=== PATIENT | female | born 1960 | race Caucasian/White ===

== ENCOUNTER 2019-05-28 15:50 | Emergency (ER) | payer BC ==
[~2019-05-28] VITALS: Ht 170.2 cm; Wt 78.0 kg
[2019-05-28 16:06] VITALS: BP_SYST 185
[2019-05-28 16:38] LABS: BASOPHILS # (AUTO) 0.1 K/uL (0.0-0.2); BASOPHILS % (AUTO) 1.2 % (0.0-2.0); EOSINOPHILS # (AUTO) 0.2 K/uL (0.0-0.4); EOSINOPHILS % (AUTO) 2.1 % (0.0-4.0); HEMATOCRIT 43.1 % (36-48); HEMOGLOBIN 14.6 g/dL (12.0-16.0); LYMPHOCYTES # (AUTO) 3.6 K/uL (1.0-5.5); LYMPHOCYTES % (AUTO) 32.9 % (20.5-51.5); MEAN CORPUSCULAR HEMOGLOBIN 31 pg (27-31); MEAN CORPUSCULAR HGB CONC 34 % (32-36); MEAN CORPUSCULAR VOLUME 91 fL (79.0-98.0); MONOCYTES # (AUTO) 0.6 K/uL (0.0-1.0); MONOCYTES % (AUTO) 5.5 % (1.7-9.3); NEUTROPHILS # (AUTO) 6.5 K/uL (1.8-7.7); NEUTROPHILS % (AUTO) 58.3 % (40.0-70.0); PLATELET COUNT (AUTO) 281 K/uL (130-430); RED BLOOD CELL COUNT(AUTO) 4.76 MIL/uL (4.2-6.2); WHITE BLOOD COUNT (AUTO) 11.1 K/uL (4.8-10.8)
[2019-05-28 16:42] LABS: ANION GAP 10 (5-15); CALCIUM 10.1 mg/dL (8.4-11.0); CHLORIDE 100 mmol/L (98-107); CREATININE 0.94 mg/dL (0.55-1.30); GLUCOSE 132 mg/dL (70-99); POTASSIUM 4.8 mmol/L (3.5-5.1); SODIUM SERUM 137 mmol/L (136-145); UREA NITROGEN, BLOOD 22 mg/dL (8-21)
[2019-05-28 16:43] LABS: GFR AFRICAN AMERICAN 79 mL/min (>90)
[2019-05-28 16:45] LABS: PROTHROMBIN TIME 10.1 SECS (9.5-12.5)
[2019-05-28 18:56] VITALS: BP_SYST 148
== END 2019-05-28 18:56 | disposition home or self-care (01) ==
LOC: SED 15:50
DX: R07.89 Other chest pain (principal); F41.9 Anxiety disorder, unspecified; I10 Essential (primary) hypertension
CPT/HCPCS: 36415; 71045; 80048; 84484; 85025; 85610-TC; 85730-TC; 99284

== ENCOUNTER 2021-11-04 17:55 | Emergency (ER) | payer BC ==
[~2021-11-04] VITALS: Ht 170.2 cm; Wt 77.1 kg
[2021-11-04 17:59] VITALS: BP_SYST 183
--- NOTE | 2021-11-04 18:10 | NUR ---
Pt in bed #5. Pt c/o left hip pain that radiates to abdomen. Rates pain 8/10. States she had surgery of her cervix 2 weeks ago and her pain styarted yesterday. Pt is A&Ox4. Ambulatory with steady gait. Skin intact. No chest pain and no sob. Denies n/v. BP at 181/104, other vitals stable. Bed in lowest position. Has hx of HTN and DM. NKA.
--- NOTE | 2021-11-04 18:13 | NUR ---
Dr. Perez at bedside.
--- NOTE | 2021-11-04 18:23 | NUR ---
Pt to CT via wheelchair.
[2021-11-04] MEDS ORDERED: KETOROLAC TROMETHAMINE 60 MG/2 ML VIAL IM ONE (18:30)
--- NOTE | 2021-11-04 18:31 | NUR ---
Pt back from CT.
--- NOTE | 2021-11-04 18:41 | NUR ---
Pt refused medication Ketorolac 60mg because she did not want it IM and also refused any pain med PO because she does not want to get charged. Dr. Perez made aware.
--- NOTE | 2021-11-04 18:59 | NUR ---
photo optics technician at bedside drawing blood.
[2021-11-04] MEDS ORDERED: NAPR-1172 PO (19:06)
[2021-11-04 19:23] LABS: BASOPHILS # (AUTO) 0.2 K/uL (0.0-0.2); BASOPHILS % (AUTO) 1.3 % (0.0-2.0); EOSINOPHILS # (AUTO) 0.4 K/uL (0.0-0.4); EOSINOPHILS % (AUTO) 2.8 % (0.0-4.0); HEMATOCRIT 39.2 % (36-48); HEMOGLOBIN 13.1 g/dL (12.0-16.0); LYMPHOCYTES # (AUTO) 2.8 K/uL (1.0-5.5); LYMPHOCYTES % (AUTO) 22.3 % (20.5-51.5); MEAN CORPUSCULAR HEMOGLOBIN 30 pg (27-31); MEAN CORPUSCULAR HGB CONC 33 % (32-36); MEAN CORPUSCULAR VOLUME 89 fL (79.0-98.0); MONOCYTES # (AUTO) 0.6 K/uL (0.0-1.0); MONOCYTES % (AUTO) 4.7 % (1.7-9.3); NEUTROPHILS # (AUTO) 8.6 K/uL (1.8-7.7); NEUTROPHILS % (AUTO) 68.9 % (40.0-70.0); PLATELET COUNT (AUTO) 319 K/uL (130-430); RED BLOOD CELL COUNT(AUTO) 4.41 MIL/uL (4.2-6.2); RED CELL DISTRIBUTION WIDTH 13.5 % (9.0-15.0); WHITE BLOOD COUNT (AUTO) 12.5 K/uL (4.8-10.8)
[2021-11-04 19:33] LABS: CALCIUM 10.4 mg/dL (8.4-11.0); CREATININE 1.12 mg/dL (0.55-1.30); POTASSIUM 4.6 mmol/L (3.5-5.1)
[2021-11-04 19:38] LABS: TOTAL BILIRUBIN 0.4 mg/dL (0.0-1.0)
--- NOTE | 2021-11-04 19:50 | NUR ---
Patient given written and verbal discharge instructions; however refused to sign written discharge instructions. ER MD discussed with patient the results and treatment provided. Patient in stable condition prior to leaving ER.
== END 2021-11-04 19:50 | disposition home or self-care (01) ==
LOC: SED 17:55
DX: S73.102A Unspecified sprain of left hip, initial encounter (principal); E11.9 Type 2 diabetes mellitus without complications; I10 Essential (primary) hypertension; Z79.899 Other long term (current) drug therapy; Z90.49 Acquired absence of other specified parts of digestive tract; Z90.710 Acquired absence of both cervix and uterus; X58.XXXA Exposure to other specified factors, initial encounter; Y93.89 Activity, other specified; Y92.89 Other specified places as the place of occurrence of the external cause; Y99.8 Other external cause status
CPT/HCPCS: 36415; 74176; 76376; 80053; 85025; 99284; J1885